=== PATIENT | female | born 2005 | race Caucasian/White ===

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

== ENCOUNTER 2024-05-10 19:45 | Emergency (ER) | payer MEDICAID, OTHER ==
[~2024-05-10] VITALS: Ht 152.4 cm; Wt 63.5 kg
[2024-05-10 19:56] VITALS: BP 127/85; PULSE 88; RESP 16; TEMP 99; O2SAT 99
[2024-05-10] MEDS ORDERED: AMOX500C25 PO (20:34)
[2024-05-10] MEDS ORDERED: IBUP-2213 PO (20:34)
[2024-05-10] MEDS: IBUPROFEN 400 MG TAB PO ONE (20:40)
[2024-05-10 20:42] VITALS: O2SAT 98
[2024-05-10] MEDS: DEXAMETHASONE 10 MG/ML VIAL IM ONE (20:43)
== END 2024-05-10 20:49 | disposition home or self-care (01) ==
LOC: MED 19:45
DX: J02.0 Streptococcal pharyngitis (principal); Z79.899 Other long term (current) drug therapy
CPT/HCPCS: 87081; 96372; 99283; J1100